=== PATIENT | female | born 1965 | race Caucasian/White ===

== ENCOUNTER 2023-08-11 17:42 | Emergency (ER) | payer MEDICAID, SELFPAY ==
[2023-08-11 17:43] VITALS: BP 159/102; PULSE 100; RESP 14; TEMP 36.4; O2SAT 98; BMI 25.0
== END 2023-08-11 18:25 | disposition left against medical advice (07) ==
LOC: ED 18:48
DX: Z00.00 Encounter for general adult medical examination without abnormal findings (principal)